=== PATIENT | female | born 1980 | race Caucasian/White ===

== ENCOUNTER → 2019-05-30 17:00 | Outpatient (CLI) | payer OTHER, MEDICAID, SELFPAY ==
[2019-05-30 19:35] LABS: Ferritin 11.1 ng/mL (6.27-137)
== END ==
PROVIDERS: Visit Provider Nurse Practitioner Family
DX: G47.61 Periodic limb movement disorder (principal)
CPT/HCPCS: 36415; 82728

== ENCOUNTER → 2019-05-31 14:48 | Outpatient (ROUT) | payer OTHER, MEDICAID, SELFPAY ==
[2019-05-31 15:23] LABS: Urine Amphetamines Negative (Negative); Urine Barbiturates Negative (Negative); Urine Benzodiazepines Negative (Negative); Urine Cocaine Negative (Negative); Urine MDMA Negative (Negative); Urine Methadone Negative (Negative); Urine Methamphetamines Negative (Negative); Urine Morphine/Opi cutoff 2000 Negative (Negative); Urine Oxycodone Negative (Negative); Urine Phencyclidine Negative (Negative); Urine Tetrahydrocannabinol Negative (Negative); Urine Tricyclic Antidepressant Negative (Negative)
== END ==
PROVIDERS: Visit Provider Nurse Practitioner Family
DX: F51.01 Primary insomnia (principal); G47.19 Other hypersomnia; G47.33 Obstructive sleep apnea (adult) (pediatric)
CPT/HCPCS: 80305